=== PATIENT | female | born 1995 | race Hispanic/Latino ===

== ENCOUNTER 2023-10-20 17:05 | Inpatient (IN) | payer BC, SELFPAY ==
[2023-10-20] VITALS (16 sets, daily range): BP systolic 100–106; BP diastolic 58–71; PULSE 74–100; RESP 16–18; TEMP 36.4–36.7; O2SAT 83–94; BMI 32.5
[2023-10-20 16:45] LABS: ROM Internal Control Test YES-OK TO RESULT pt. (Internal QC); ROM Patient Test POSITIVE (Negative)
[2023-10-20 16:46] LABS: Record Kit Lot#, ROM+ K1866
[2023-10-20] MEDS: 0.9% Saline Lock 10 ML Syringe IV (18:00)
[2023-10-20 18:18] LABS: Absolute Lymphocyte Count 2.73 X10^3/uL (0.83-4.51); Absolute Neutrophil Count 7.7 X10^3/uL (2.0-7.7); Basophil# 0.05 X10^3/uL; Basophil% 0.4 % (0-1); Eosinophil# 0.09 X10^3/uL; Eosinophils% 0.8 % (0-5); Hematocrit 35.5 % (37-47); Hemoglobin 11.5 g/dL (12.0-15.0); Lymphocyte # 2.73 X10^3/ul (0.83-4.51); Mean Corp Hgb Conc 32.4 g/dL (32-36); Mean Corpuscular Hgb 29.2 pg (27.0-32.0); Mean Corpuscular Volume 90.1 fL (81-99); Mean Platelet Vol. 9.1 fl (6.2-12.0); Monocyte% 6.1 % (0-10); NRBC Flagged by Analyzer 0 % (0-5); Neutrophil # 7.74 X10^3/uL (2.7-7.7); Platelet Count 304 K/mm3 (150-450); RBC Distribution Width CV 13.2 % (11.6-14.6); RBC Distribution Width SD 43.3 fl (35.1-43.9); Red Blood Count 3.94 M/mm3 (4.2-5.4); White Blood Count 11.4 K/mm3 (4.4-11.0)
[2023-10-20 19:08] LABS: Syphilis Antibodies Non-reactive
--- NOTE | 2023-10-20 19:42 | PCM.HP.OB ---
HPI - General General Date of Admission: 10/20/23 HPI Narrative DEVANG MCFADDEN, is a 28 F at 41 weeks gestation who presents with spontaneous rupture of membranes this afternoon for clear fluid. She continues to leak small amounts of fluid. Positive movement. Feeling an occasional contraction. Patient desires unmedicated labor and delivery with warm water immersion. Maternal Data Information JACQUELINE Calculator Estimated Delivery Date Method Current WG Current Estimate 10/13/23 Manual 41w 0d PFSH PFSH Medical History (Updated 10/20/23 @ 20:01 by Brigette Jones CNM) Breast disorder Home Medications ?Medication ?Instructions ?Recorded ?Last Taken ?Type vit no.95-ferrous 1 tab PO DAILY 10/20/23 10/20/23 History fumarate 28 mg-folic acid 800 mcg tablet () Allergy/AdvReac Type Severity Reaction Status Date / Time No Known Allergies Allergy Verified 10/20/23 16:20 Surgical History (Updated 10/20/23 @ 17:49 by Rosi Frazier) History of surgery Social History Smoking Status: Never smoker History Elective abortions Hx Para 0 Spontaneous abortions Hx # Term Pregnancies Ectopic pregnancies Hx # Pregnancies Multiple births # of living children ROS Eyes Eyes: Denies blurry vision, change in vision or spots in vision ENT HEENT: Denies dizziness or headache(s) Cardiovascular Cardiovascular: Denies abdominal pain, chest pain or dyspnea Respiratory/Chest Respiratory/Chest: Denies cough, dyspnea, shortness of breath at rest or shortness of breath with exertion Gastrointestinal Gastrointestinal: Denies abdominal pain, diarrhea or vomiting Genitourinary Genitourinary: Denies change in urinary stream, difficulty urinating or dysuria Musculoskeletal Musculoskeletal: Reports none Integumentary Integumentary: Denies rash Neurologic Neurologic: Denies dizziness, headache(s), memory loss or weakness Psychiatric Psychiatric: Reports none Vital Signs Vital Signs Vital Signs: 10/20/23 16:03 10/20/23 16:03 10/20/23 16:04 Temperature Temperature Source Temporal Pulse Rate 89 Respiratory Rate Blood Pressure 100/61 BP Systolic 100 BP Diastolic 61 10/20/23 16:04 10/20/23 16:04 10/20/23 17:25 Temperature 98.1 F Temperature Source Temporal Pulse Rate Respiratory Rate 16 Blood Pressure BP Systolic BP Diastolic 10/20/23 17:25 10/20/23 17:25 10/20/23 17:26 Temperature 97.5 F L Temperature Source Pulse Rate Respiratory Rate 16 Blood Pressure 101/71 BP Systolic 101 BP Diastolic 71 10/20/23 17:26 10/20/23 17:49 Temperature Temperature Source Pulse Rate 82 86 Respiratory Rate Blood Pressure BP Systolic BP Diastolic Weight Weight: 177 lb 12.8 oz Body Mass Index (BMI) 32.5 Physical Exam Const alert, oriented x3 and no apparent distress General Appearance: cooperative Orientation / Consciousness: awake Exam Limitations: no limitations HEENT normocephalic Head and Scalp: normal to inspection Eyes General Eye: normal appearance of both eyes Neck full ROM and no lymphadenopathy Lymph Lymphatic: no lymphadenopathy noted Chest inspection of chest normal Resp normal respiratory effort, normal air movement and clear to auscultation bilaterally Effort and Inspection: able to speak in complete sentences and symmetric chest movement Cardio regular rate and regular rhythm GI normal to inspection, nondistended, normoactive bowel sounds Back/Spine normal ROM Extremity full ROM and no calf tenderness Skin no rashes or lesions noted General Skin Exam: no breakdown Neuro oriented x3 and CN's II-XII intact bilaterally Psych mental status grossly normal and thought process normal Labs Labs Labs: Blood Type O POSITIVE Antibody Screen NEGATIVE Hct 35.5 % (37-47) L Hgb 11.5 g/dL (12.0-15.0) L Syphilis Total Ab Non-reactive GBS NEGATIVE Assessment & Plan (1) 41 weeks gestation of : (2) Spontaneous rupture of amniotic membranes: (3) Fibroadenoma of left breast: PLAN: Plan ROM plus_ POSITIVE Admit to labor and delivery GBS negative Start IV - SL IA Patient requesting delay in CE at this time No contractions at this time CE in 2 hours Reviewed nipple stimulation to assist with starting contractions Dr. Saldana notified of admission and is collaborating physician
--- NOTE | 2023-10-20 21:37 | PN.OBGYN_ITS ---
Subjective Subjective Patient denies any pain. She thinks she has felt irregular contractions. Objective Data Objective Data Vital Signs: Vital Signs Temp Pulse Resp BP Pulse Ox 97.6 F L 85 18 106/58 L 83 10/20/23 20:12 10/20/23 20:29 10/20/23 20:12 10/20/23 20:12 10/20/23 20:12 Weight: 177 lb 12.8 oz Body Mass Index (BMI) 32.5 Lab / Micro Data 10/20/23 18:00 Labs: Laboratory Results - last 24 hr 10/20/23 16:10: Vag Amniotic Fld Detect POSITIVE H 10/20/23 18:00: WBC 11.4 H, RBC 3.94 L, Hgb 11.5 L, Hct 35.5 L, MCV 90.1, MCH 29.2, MCHC 32.4, RDW Std Deviation 43.3, RDW Coeff of Neo 13.2, Plt Count 304, MPV 9.1, Immature Gran % (Auto) 0.700, Neut % (Auto) 68.0, Lymph % (Auto) 24.0, [place] % (Auto) 6.1, Eos % (Auto) 0.8, Baso % (Auto) 0.4, Absolute Neuts (auto) 7.7, Absolute Lymphs (auto) 2.73, Nucleated RBC % 0, Syphilis Total Ab Non- reactive, Blood Type O POSITIVE, Antibody Screen NEGATIVE Assessment & Plan (1) 41 weeks gestation of : (2) Spontaneous rupture of amniotic membranes: PLAN: Plan CE- FT/Thick/ Posterior Continues to leak small amount of clear-pink tinged fluid Exam was difficult due to patient not tolerating due to pain Discussed plan of care with patient and . R/B/A to Cytotec PO discussed and questions answered. Patient declines medication at this time. She desires to try nipple stimulation, ambulation and position changes throughout tonight and will reevaluate in AM
[2023-10-21] VITALS (42 sets, daily range): BP systolic 87–128; BP diastolic 50–80; PULSE 72–131; RESP 14–18; TEMP 36.2–37.3; O2SAT 88–100
--- NOTE | 2023-10-21 08:37 | PCM.PN.OB ---
Subjective Subjective Sitting up on ball, comfortable. at bedside Objective Data Objective Data Vital Signs: Vital Signs Temp Pulse Resp BP Pulse Ox 98.5 F 82 16 107/68 99 10/21/23 07:39 10/21/23 07:39 10/21/23 07:39 10/21/23 07:39 10/21/23 07:39 Weight: 177 lb 12.8 oz Body Mass Index (BMI) 32.5 Intake & Output: Intake and Output for Last 24 Hours 10/19/23 10/20/23 10/21/23 23:59 23:59 23:59 Intake Total 200 / 200 600 / 600 Output Total 1300 / 1300 Balance 200 / 200 -700 / -700 Lab / Micro Data 10/20/23 18:00 Labs: Laboratory Results - last 24 hr 10/20/23 16:10: Vag Amniotic Fld Detect POSITIVE H 10/20/23 18:00: WBC 11.4 H, RBC 3.94 L, Hgb 11.5 L, Hct 35.5 L, MCV 90.1, MCH 29.2, MCHC 32.4, RDW Std Deviation 43.3, RDW Coeff of Neo 13.2, Plt Count 304, MPV 9.1, Immature Gran % (Auto) 0.700, Neut % (Auto) 68.0, Lymph % (Auto) 24.0, [place] % (Auto) 6.1, Eos % (Auto) 0.8, Baso % (Auto) 0.4, Absolute Neuts (auto) 7.7, Absolute Lymphs (auto) 2.73, Nucleated RBC % 0, Syphilis Total Ab Non-reactive, Blood Type O POSITIVE, Antibody Screen NEGATIVE Physical Exam Narrative: /-1 AROM clear fluid NST FHR Rate Baby A Baseline: 140 Variability:: Moderate Accelerations:: 15 x 15 Decelerations:: None FHR Category:: Category I Uterine Activity:: Irregular Assessment & Plan (1) Nulliparity: (2) 41 weeks gestation of : (3) PROM (premature rupture of membranes): PLAN: Plan 1) AROM clear fluid 2) Discussed expectant vs active management. Reviewed risks of infection with expectant management and alternatives. Would like to proceed with expectant management at this time. If no change in contractions open to pitocin 3) Nipple Stimulation. 4) collaborative physician and notified of patient above assessment and plan.
--- NOTE | 2023-10-21 08:43 | PN.OBGYN_ITS ---
Subjective Subjective Patient seen at bedside. Reports has ambulated, showered, sat on birthing ball and completed several position changes throughout the night. She has felt slight cramps at times. Objective Data Objective Data Vital Signs: Vital Signs Temp Pulse Resp BP Pulse Ox 98.5 F 82 16 107/68 99 10/21/23 07:39 10/21/23 07:39 10/21/23 07:39 10/21/23 07:39 10/21/23 07:39 Weight: 177 lb 12.8 oz Body Mass Index (BMI) 32.5 Intake & Output: Intake and Output for Last 24 Hours 10/19/23 10/20/23 10/21/23 23:59 23:59 23:59 Intake Total 200 / 200 600 / 600 Output Total 1300 / 1300 Balance 200 / 200 -700 / -700 Lab / Micro Data 10/20/23 18:00 Labs: Laboratory Results - last 24 hr 10/20/23 16:10: Vag Amniotic Fld Detect POSITIVE H 10/20/23 18:00: WBC 11.4 H, RBC 3.94 L, Hgb 11.5 L, Hct 35.5 L, MCV 90.1, MCH 29.2, MCHC 32.4, RDW Std Deviation 43.3, RDW Coeff of Neo 13.2, Plt Count 304, MPV 9.1, Immature Gran % (Auto) 0.700, Neut % (Auto) 68.0, Lymph % (Auto) 24.0, [place] % (Auto) 6.1, Eos % (Auto) 0.8, Baso % (Auto) 0.4, Absolute Neuts (auto) 7.7, Absolute Lymphs (auto) 2.73, Nucleated RBC % 0, Syphilis Total Ab Non- reactive, Blood Type O POSITIVE, Antibody Screen NEGATIVE Assessment & Plan (1) 41 weeks gestation of : (2) Spontaneous rupture of amniotic membranes: (3) Fibroadenoma of left breast: (4) Nulliparity: PLAN: Plan Discussed plan of care with patient and and questions answered CE will be done by oncoming provider If remains unchanged/ closed is open to medication intervention
--- NOTE | 2023-10-21 18:18 | PCM.PN.OB ---
Subjective Subjective Walking jon with , coping well with contractions Objective Data Objective Data Vital Signs: Vital Signs Temp Pulse Resp BP Pulse Ox 99.1 F 88 18 90/50 L 98 10/21/23 16:56 10/21/23 16:57 10/21/23 16:56 10/21/23 16:57 10/21/23 16:14 Weight: 177 lb 12.8 oz Body Mass Index (BMI) 32.5 Intake & Output: Intake and Output for Last 24 Hours 10/19/23 10/20/23 10/21/23 23:59 23:59 23:59 Intake Total 200 / 200 600 / 600 Output Total 1300 / 1300 Balance 200 / 200 -700 / -700 Lab / Micro Data 10/20/23 18:00 Labs: Laboratory Results - last 24 hr 10/20/23 18:00: WBC 11.4 H, RBC 3.94 L, Hgb 11.5 L, Hct 35.5 L, MCV 90.1, MCH 29.2, MCHC 32.4, RDW Std Deviation 43.3, RDW Coeff of Neo 13.2, Plt Count 304, MPV 9.1, Immature Gran % (Auto) 0.700, Neut % (Auto) 68.0, Lymph % (Auto) 24.0, [place] % (Auto) 6.1, Eos % (Auto) 0.8, Baso % (Auto) 0.4, Absolute Neuts (auto) 7.7, Absolute Lymphs (auto) 2.73, Nucleated RBC % 0, Syphilis Total Ab Non-reactive, Blood Type O POSITIVE, Antibody Screen NEGATIVE Physical Exam Narrative: 5cm per nursing staff Assessment & Plan (1) PROM (premature rupture of membranes): (2) Nulliparity: (3) 41 weeks gestation of : (4) Active labor at term: PLAN: Plan 1) Labor contraction intensity remained the same and has not increased. Discussed option for pitocin and active management at this time. Patient in agreement. Reviewed if pitocin is started and contractions start and cervical change, have the option to stop and can still get in tub for pain relief if active strip and no longer augmenting labor. 2) updated on patient status 3) Continuous EFM
[2023-10-21] MEDS: Lactated Ringers 1,000 ML 100 ML IV (18:39)
[2023-10-21] MEDS: Oxytocin 15 Units/NS 250ml 15 UNITS/250 ML IV.SOLN 2 UNITS IV (18:44)
[2023-10-21] MEDS: Lactated Ringers 1,000 ML 999 ML IV (23:53)
[2023-10-22] VITALS (57 sets, daily range): BP systolic 92–122; BP diastolic 50–78; PULSE 70–116; RESP 14–16; TEMP 36.7–37.8; O2SAT 91–100
[2023-10-22] MEDS: fentaNYL-bupivacaine (epidural) 100 ML BAG EPIDURAL (00:42)
--- NOTE | 2023-10-22 02:50 | EX.PCM.OBRPT ---
Assessment & Plan (1) Vaginal delivery: (2) First degree perineal laceration: (3) Lactating mother: Maternal Data Information JACQUELINE Calculator Estimated Delivery Date Method Current WG Current Estimate 10/13/23 Manual 41w 2d Vaginal Delivery Maternal Presentation Maternal Presentation: Spontaneous Rupture of Membranes Operative Information Date of Procedure: 10/22/23 Pre-Operative Diagnosis: PROM Post-Operative Diagnosis: , first degree vaginal laceration Surgery / Procedure Performed: Spontaneous Vaginal Delivery Type of Anesthesia: Epidural Estimated Blood Loss: 300ml Time of Delivery: 02:06 Findings Description of Procedure: Progressed to complete with urge to push. Epidural for pain management. of viable male over first degree vaginal laceration. APGARS 8,9 respectively. head delivered with body immediately forthcoming. Placed on maternal abdomen, strong cry. Mouth and nares suctioned for secretions. Pitocin started for active 3rd stage management. Cord doubly clamped and cut by FOB after pulsations ceased, delayed cord clamping. Placenta delivered intact via madden, 3 vessel cord intact. Perineum inspected and revealed 1st degree vaginal laceration. Repaired with 3.0 vicryl rapide and epidural. Fundus firm and hemostasis achieved. EBL 300ml. Mom and baby stable, planning to breastfeed. Family bonding well. notified of delivery. Presentation: Vertex Amniotic Membrane Rupture Type: Spontaneous Amniotic Fluid Description: Clear Placental Delivery Description: Spontaneous Placenta Disposition: [facility] Cord Vessel Description: 3 Vessels Cord Entanglement: None Infant A Gender: Male (1 minute): 9 (5 minute): 9 Delayed Cord Clamping: Yes Post Vaginal Delivery Medications Given After Delivery: IV Pitocin Episiotomy Description: None Laceration: Vaginal Extension/lac and 1st degree Complication Complications: None
[2023-10-22] MEDS: Oxytocin 15 Units/NS 250ml 15 UNITS/250 ML IV.SOLN 83 UNITS IV (02:53)
[2023-10-22] MEDS: Ibuprofen 600 MG Tablet PO ×3 (04:19→20:10)
[2023-10-22 04:53] LABS: Absolute Lymphocyte Count 1.43 X10^3/uL (0.83-4.51); Absolute Neutrophil Count 19.4 X10^3/uL (2.0-7.7); Basophil# 0.06 X10^3/uL; Basophil% 0.3 % (0-1); Hematocrit 29.5 % (37-47); Hemoglobin 9.8 g/dL (12.0-15.0); Lymphocyte # 1.43 X10^3/ul (0.83-4.51); Lymphocyte % 6.5 % (19-41); Mean Corp Hgb Conc 33.2 g/dL (32-36); Mean Corpuscular Hgb 29.3 pg (27.0-32.0); Mean Corpuscular Volume 88.1 fL (81-99); Mean Platelet Vol. 9.3 fl (6.2-12.0); Monocyte# 1.08 X10^3/uL; Monocyte% 4.9 % (0-10); NRBC Flagged by Analyzer 0 % (0-5); Neutrophil # 19.39 X10^3/uL (2.7-7.7); Neutrophil % 87.4 % (47-70); Platelet Count 246 K/mm3 (150-450); RBC Distribution Width CV 13.2 % (11.6-14.6); RBC Distribution Width SD 41.8 fl (35.1-43.9); Red Blood Count 3.35 M/mm3 (4.2-5.4); White Blood Count 22.2 K/mm3 (4.4-11.0)
[2023-10-22] MEDS: Acetaminophen 500 MG Tablet 1000 MG PO ×3 (08:26→17:39)
[2023-10-23 00:50] VITALS: BP 97/57; PULSE 65; RESP 16; TEMP 36.6; O2SAT 99
[2023-10-23 00:55] VITALS: BP 97/57; PULSE 63
[2023-10-23] MEDS: Ibuprofen 600 MG Tablet PO ×2 (02:30→09:36)
[2023-10-23] MEDS: Acetaminophen 500 MG Tablet 1000 MG PO (05:45)
--- NOTE | 2023-10-23 08:50 | PCM.DC.SUM ---
Providers Date of Admission: 10/20/23 Primary Care Physician: Susanne Primary Care Phys Reason For Visit: VAG Diagnosis Discharge Diagnosis (1) Vaginal delivery: Status: Acute Code(s): O80 - Encounter for full-term uncomplicated delivery (2) First degree perineal laceration: Status: Acute Code(s): O70.0 - First degree perineal laceration during delivery (3) Lactating mother: Status: Acute Code(s): Z39.1 - Encounter for care and examination of lactating mother Medications at Discharge Home Medications vit no.95-ferrous fumarate 28 mg-folic acid 800 mcg tablet () 1 tab PO DAILY 10/20/23 Hospital Course Operations None Procedures None Summary of Care Provided Minutes Spent on Discharge: 16 Hospital Course: 28-year-old female admitted with premature rupture of membranes at 41 weeks on 10/20/2023. Patient desired minimal intervention. Eventually was receptive to induction of labor. She progressed to complete and delivered without complication and had a spontaneous vaginal delivery on 10/22/2023. day 1 she was ambulating, urinating tolerating regular diet and the was breast-feeding and doing well. Patient desired discharge home with routine instructions and follow-up. Physical Exam Narrative Pain well-controlled. Average lochia. No other complaints today. Assessment and plan day #1 status post vaginal delivery at 41-2/7 gestational weeks. Patient and are doing well. Desires discharge home with routine instructions and prescriptions. Const alert and no apparent distress Narrative: Fundus firm, below umbilicus. Weight / BMI Weight Weight: 80.649 kg Body Mass Index (BMI) 32.5 ABG / Lab / Microbiology Data 10/22/23 04:35 D/C Instructions May resume sexual activity in: 6 weeks Please Follow Up With: Yulia Vicente CNM When: Follow up with our office in 1-2 and 6 weeks or as needed. [phone] Meaningful Use Info Meaningful Use Meaningful Use Diagnoses (Choose all that apply): None applicable Ischemic Stroke Statin Dosing Therapy Reference: STATIN DOSE THERAPY REFERENCE: * Patients > 75 years receive moderate or high dose statin therapy. * Patients 75 years or YOUNGER should receive HIGH intensity statin dose unless contraindicated. You will be required to document reason for non-treatment if statin daily dose does not meet guidelines. HIGH DOSE STATIN THERAPY DAILY Atorvastatin > than or = to 40 mg Rosuvastatin > than or = to 20 mg Amlodipine + Atorvastatin > than or = to 2.5/40 mg Ezetimibe + Simvastatin 10/80 mg Simvastatin 80mg Discharge Plan Admission Admit Date/Time: 10/20/23 17:05 Attending Provider: Yulia Vicente Primary Care Provider: Care Physician,No Primary Discharge Orders/Prescriptions Prescriptions: No Action PNV cmb#95-ferrous fumarate-FA [] 28 mg iron- 800 mcg tablet 1 tab PO DAILY Referrals / Follow Up: Care Physician,No Primary [Primary Care Provider] -
[2023-10-23 09:13] VITALS: BP 99/54; PULSE 73; O2SAT 100
[2023-10-23 09:29] VITALS: BP 99/54; PULSE 67; RESP 16; TEMP 36.4; O2SAT 99
[2023-10-23 14:32] VITALS: BP 116/59; PULSE 112; O2SAT 94
[2023-10-23 14:37] VITALS: BP 116/59; PULSE 106; RESP 16; TEMP 36.4; O2SAT 96
--- NOTE | 2023-10-28 15:12 | NURSING ---
F/up phone call performed-- pt. doing well. States lochia is very minimal, almost no bleeding at this time. Has been seeing who has answered all her questions. Encouragement and support given. Had a mild headache a day or two ago that went away with rest.
== END 2023-10-23 15:15 | disposition home or self-care (01) | DRG 807 ==
LOC: WPOUT 17:09 → WP 17:09
PROVIDERS: Advanced Practice Midwife; Admitting Provider Advanced Practice Midwife; Referring Provider Advanced Practice Midwife; Visit Provider Advanced Practice Midwife
DX: O48.0 Post-term pregnancy (principal); Z37.0 Single live birth; O42.92 Full-term premature rupture of membranes, unspecified as to length of time between rupture and onset of labor; O70.0 First degree perineal laceration during delivery; Z3A.41 41 weeks gestation of pregnancy
CPT/HCPCS: 59025; 59050; 84112; 85025; 86780; 86850; 86900; 86901; 99221; J7120; A4216; G0378